=== PATIENT | female | born 1975 | race Caucasian/White ===

== ENCOUNTER 2017-12-12 03:46 | Emergency (ER) | payer MEDICAID ==
[~2017-12-12] VITALS: Ht 154.9 cm; Wt 88.9 kg
[2017-12-12 03:52] VITALS: Ht 154.9 cm; Wt 88.9 kg
[2017-12-12 04:49] LABS: BASOPHIL % 0.5 % (0-2); PLATELET COUNT 235 x10^3mcL (130-400)
[2017-12-12 04:54] LABS: CALCIUM 8.5 mg/dL (8.5-10.1); CARBON DIOXIDE 22.9 mmol/L (21-32); CHLORIDE SERUM 105 mmol/L (98-107); CREATININE SERUM 0.7 mg/dL (0.6-1.0); GFR1 > 60 mL/min; GLUCOSE SERUM 107 mg/dL (74-106); POTASSIUM SERUM 3.7 mmol/L (3.5-5.1); SODIUM SERUM 137 mmol/L (136-145)
[2017-12-12 04:58] LABS: ALKALINE PHOSPHATASE 78 U/L (46-116); ALT/SGPT 50 U/L (14-59); AST/SGOT 22 U/L (15-37); BILIRUBIN TOTAL 0.19 mg/dL (0.20-1.00); HDL CHOLESTEROL 55 mg/dL (40-60); LIPASE 125 IU/L (73-393); TOTAL PROTEIN, SERUM 7.1 g/dL (6.4-8.2); TRIGLYCERIDES 193 mg/dL (<150)
[2017-12-12 04:59] LABS: ALBUMIN 3.3 g/dL (3.4-5.0); CHOLESTEROL 252 mg/dL (<200); CHOLESTEROL/HDL RATIO 4.6
[2017-12-12 05:02] LABS: microscopic required? NO
[2017-12-12 05:03] LABS: RED CELL DISTRIBUTION WIDTH 15.2 % (11.5-14.5); T3 TOTAL 1.2 ng/mL
[2017-12-12 05:11] LABS: UA SPECIFIC GRAVITY <=1.005 (1.005-1.035); urine erythrocyte NEGATIVE (NEGATIVE)
[2017-12-12 05:12] LABS: FREE T4 0.73 ng/dL (0.76-1.46); FREE THYROXINE INDEX 2.2 ug/dL (1.4-4.5); T4(THYROXINE) 6.8 ug/dL (4.7-13.3)
[2017-12-12 05:39] VITALS: BP 134/86
== END 2017-12-12 05:40 | disposition home or self-care (01) ==
LOC: ED 03:46
PROVIDERS: Specialist
DX: F43.0 Acute stress reaction (principal); I10 Essential (primary) hypertension
CPT/HCPCS: 83880; 84439; J1885; J2060; J7030; Q0092

== ENCOUNTER 2018-06-24 07:42 | Emergency (ER) | payer MEDICAID ==
[~2018-06-24] VITALS: Ht 154.9 cm; Wt 88.6 kg
[2018-06-24 07:50] VITALS: BP 149/97; Ht 154.9 cm; Wt 88.6 kg
== END 2018-06-24 09:21 | disposition home or self-care (01) ==
LOC: ED 07:42
DX: N60.01 Solitary cyst of right breast (principal); I10 Essential (primary) hypertension
CPT/HCPCS: 76641; Q0092

== ENCOUNTER 2019-06-19 19:26 | Emergency (ER) | payer OTHER ==
[~2019-06-19] VITALS: Ht 154.9 cm; Wt 87.1 kg
[2019-06-19 19:45] VITALS: Ht 154.9 cm; Wt 87.1 kg
[2019-06-19 20:54] LABS: BASOPHIL % 0.6 % (0-2); PLATELET COUNT 236 x10^3mcL (130-400); RED CELL DISTRIBUTION WIDTH 13.2 % (11.5-14.5)
[2019-06-19 21:06] LABS: CALCIUM 9.1 mg/dL (8.5-10.1); CARBON DIOXIDE 28.4 mmol/L (21-32); CHLORIDE SERUM 101 mmol/L (98-107); CREATININE SERUM 0.6 mg/dL (0.6-1.0); GFR1 > 60 mL/min; GLUCOSE SERUM 107 mg/dL (74-106); POTASSIUM SERUM 3.7 mmol/L (3.5-5.1); SODIUM SERUM 137 mmol/L (136-145)
[2019-06-19 21:11] LABS: ALBUMIN 3.8 g/dL (3.4-5.0); ALKALINE PHOSPHATASE 77 U/L (46-116); ALT/SGPT 28 U/L (14-59); AST/SGOT 13 U/L (15-37); BILIRUBIN TOTAL 0.3 mg/dL (0.20-1.00); LIPASE 99 IU/L (73-393); TOTAL PROTEIN, SERUM 7.8 g/dL (6.4-8.2)
[2019-06-19 21:36] VITALS: BP 150/86
== END 2019-06-19 21:38 | disposition home or self-care (01) ==
LOC: ED 19:26
PROVIDERS: Emergency Medicine
DX: K29.70 Gastritis, unspecified, without bleeding (principal); I10 Essential (primary) hypertension; Z88.0 Allergy status to penicillin; Z90.49 Acquired absence of other specified parts of digestive tract
CPT/HCPCS: 36415

== ENCOUNTER 2019-11-10 10:56 | Emergency (ER) | payer OTHER ==
[~2019-11-10] VITALS: Ht 154.9 cm; Wt 88.9 kg
[2019-11-10 10:58] VITALS: BP 141/93; Ht 154.9 cm; Wt 88.9 kg
== END 2019-11-10 12:56 | disposition home or self-care (01) ==
LOC: ED 10:56
DX: M79.651 Pain in right thigh (principal); I10 Essential (primary) hypertension; Z88.0 Allergy status to penicillin
CPT/HCPCS: J1885; Q0092

== ENCOUNTER 2019-11-13 09:11 | Inpatient (IN) | payer OTHER, SELFPAY ==
[~2019-11-13] VITALS: Ht 154.9 cm; Wt 89.4 kg
[2019-11-13 12:18] LABS: UA SPECIFIC GRAVITY 1.025 (1.005-1.035); microscopic required? YES; urine erythrocyte 1+ (NEGATIVE)
[2019-11-13 12:34] LABS: BASOPHIL % 0.3 % (0-2); PLATELET COUNT 232 x10^3mcL (130-400); RED CELL DISTRIBUTION WIDTH 13.7 % (11.5-14.5)
[2019-11-13 12:35] LABS: CALCIUM 8.1 mg/dL (8.5-10.1); CARBON DIOXIDE 30.5 mmol/L (21-32); CHLORIDE SERUM 99 mmol/L (98-107); CREATININE SERUM 0.8 mg/dL (0.6-1.0); GFR1 > 60 mL/min; GLUCOSE SERUM 112 mg/dL (74-106); POTASSIUM SERUM 4.1 mmol/L (3.5-5.1); SODIUM SERUM 134 mmol/L (136-145)
[2019-11-13 12:40] LABS: ALKALINE PHOSPHATASE 81 U/L (46-116); ALT/SGPT 115 U/L (14-59); AST/SGOT 183 U/L (15-37); BILIRUBIN TOTAL 0.3 mg/dL (0.20-1.00); C REACTIVE PROTEIN 6.6 mg/dL (<=0.9); LACTIC DEHYDROGENASE (LDH) 541 U/L (100-190)
[2019-11-13 12:42] LABS: ALBUMIN 2.8 g/dL (3.4-5.0); TOTAL PROTEIN, SERUM 6.1 g/dL (6.4-8.2)
[2019-11-13] MEDS ORDERED: ADVIL200 M1 PO (15:35)
[2019-11-13 15:56] LABS: LIPASE 76 IU/L (73-393)
[2019-11-13 15:57] LABS: AMYLASE 20 U/L (25-115)
[2019-11-13 16:22] VITALS: Ht 154.9 cm; Wt 89.4 kg
[2019-11-13 16:35] LABS: CHOLESTEROL/HDL RATIO 5.1
[2019-11-13 16:42] VITALS: BP 138/70
[2019-11-13 16:46] LABS: T3 TOTAL 1.18 ng/mL
[2019-11-13 17:33] LABS: FREE T4 2.07 ng/dL (0.76-1.46); FREE THYROXINE INDEX 2.7 ug/dL (1.4-4.5); T4(THYROXINE) 8.1 ug/dL (4.7-13.3)
[2019-11-13 20:30] VITALS: BP 107/65
[2019-11-14 05:00] VITALS: BP 120/57
[2019-11-14 07:07] LABS: BASOPHIL % 0.4 % (0-2); C REACTIVE PROTEIN 10.4 mg/dL (<=0.9); CALCIUM 7.7 mg/dL (8.5-10.1); CARBON DIOXIDE 27.3 mmol/L (21-32); CHLORIDE SERUM 98 mmol/L (98-107); CREATININE SERUM 0.6 mg/dL (0.6-1.0); GFR1 > 60 mL/min; GLUCOSE SERUM 115 mg/dL (74-106); MAGNESIUM 1.4 mg/dL (1.8-2.4); PHOSPHOROUS 2.3 mg/dL (2.5-4.9); PLATELET COUNT 263 x10^3mcL (130-400); POTASSIUM SERUM 4.2 mmol/L (3.5-5.1); RED CELL DISTRIBUTION WIDTH 13.8 % (11.5-14.5); SODIUM SERUM 131 mmol/L (136-145)
[2019-11-14 08:56] VITALS: BP 144/78
[2019-11-14 13:26] VITALS: BP 144/79
[2019-11-14 17:40] VITALS: BP 144/72
[2019-11-14 20:00] VITALS: BP 138/76
[2019-11-15 05:56] VITALS: BP 136/56
[2019-11-15 07:27] LABS: ALKALINE PHOSPHATASE 52 U/L (46-116); ALT/SGPT 110 U/L (14-59); AST/SGOT 179 U/L (15-37); BILIRUBIN TOTAL 0.2 mg/dL (0.20-1.00); C REACTIVE PROTEIN 9.3 mg/dL (<=0.9); CALCIUM 7.4 mg/dL (8.5-10.1); CHLORIDE SERUM 96 mmol/L (98-107); CREATININE SERUM 0.7 mg/dL (0.6-1.0); GFR1 > 60 mL/min; GLUCOSE SERUM 108 mg/dL (74-106); MAGNESIUM 1.4 mg/dL (1.8-2.4); PHOSPHOROUS 3.6 mg/dL (2.5-4.9); SODIUM SERUM 129 mmol/L (136-145)
[2019-11-15 07:30] LABS: BASOPHIL % 0.2 % (0-2); PLATELET COUNT 259 x10^3mcL (130-400); RED CELL DISTRIBUTION WIDTH 13.9 % (11.5-14.5)
[2019-11-15 07:31] LABS: ALBUMIN 2.1 g/dL (3.4-5.0); TOTAL PROTEIN, SERUM 5.2 g/dL (6.4-8.2)
[2019-11-15 12:36] VITALS: BP 114/70
[2019-11-15 16:49] VITALS: BP 134/74
[2019-11-15 21:00] VITALS: BP 133/79
[2019-11-16 06:18] VITALS: BP 131/71
[2019-11-16 07:01] LABS: BASOPHIL % 0.2 % (0-2); PLATELET COUNT 279 x10^3mcL (130-400); RED CELL DISTRIBUTION WIDTH 13.9 % (11.5-14.5)
[2019-11-16 07:03] LABS: ALKALINE PHOSPHATASE 50 U/L (46-116); ALT/SGPT 123 U/L (14-59); AST/SGOT 163 U/L (15-37); BILIRUBIN TOTAL 0.2 mg/dL (0.20-1.00); C REACTIVE PROTEIN 8.5 mg/dL (<=0.9); CALCIUM 8.1 mg/dL (8.5-10.1); CHLORIDE SERUM 100 mmol/L (98-107); CREATININE SERUM 0.6 mg/dL (0.6-1.0); GFR1 > 60 mL/min; GLUCOSE SERUM 117 mg/dL (74-106); MAGNESIUM 1.9 mg/dL (1.8-2.4); POTASSIUM SERUM 3.8 mmol/L (3.5-5.1); SODIUM SERUM 135 mmol/L (136-145)
[2019-11-16 07:04] LABS: ALBUMIN 2.2 g/dL (3.4-5.0); TOTAL PROTEIN, SERUM 5.6 g/dL (6.4-8.2)
[2019-11-16 08:43] VITALS: BP 137/85
[2019-11-16 12:30] VITALS: BP 133/67
[2019-11-16 17:30] VITALS: BP 142/73
[2019-11-17 00:01] VITALS: BP 122/56
[2019-11-17 06:36] VITALS: BP 116/54
[2019-11-17 07:30] VITALS: BP 139/107
[2019-11-17 08:39] LABS: BASOPHIL % 0.4 % (0-2); PLATELET COUNT 333 x10^3mcL (130-400); RED CELL DISTRIBUTION WIDTH 13.7 % (11.5-14.5)
[2019-11-17 09:41] LABS: ALKALINE PHOSPHATASE 52 U/L (46-116); ALT/SGPT 175 U/L (14-59); AST/SGOT 204 U/L (15-37); BILIRUBIN TOTAL 0.2 mg/dL (0.20-1.00); C REACTIVE PROTEIN 4.3 mg/dL (<=0.9); CALCIUM 8.1 mg/dL (8.5-10.1); CARBON DIOXIDE 32.1 mmol/L (21-32); CHLORIDE SERUM 99 mmol/L (98-107); CREATININE SERUM 0.6 mg/dL (0.6-1.0); GFR1 > 60 mL/min; GLUCOSE SERUM 81 mg/dL (74-106); MAGNESIUM 1.8 mg/dL (1.8-2.4); PHOSPHOROUS 3.9 mg/dL (2.5-4.9); POTASSIUM SERUM 3.6 mmol/L (3.5-5.1); SODIUM SERUM 136 mmol/L (136-145)
[2019-11-17 09:42] LABS: ALBUMIN 2.4 g/dL (3.4-5.0); TOTAL PROTEIN, SERUM 5.6 g/dL (6.4-8.2)
[2019-11-17 12:30] VITALS: BP 123/81
[2019-11-17 17:30] VITALS: BP 142/71
[2019-11-17 20:45] VITALS: BP 147/88
[2019-11-18 05:14] VITALS: BP 135/71
[2019-11-18 07:31] LABS: ALKALINE PHOSPHATASE 61 U/L (46-116); ALT/SGPT 234 U/L (14-59); AST/SGOT 259 U/L (15-37); BILIRUBIN TOTAL 0.2 mg/dL (0.20-1.00); CALCIUM 7.8 mg/dL (8.5-10.1); CARBON DIOXIDE 33.8 mmol/L (21-32); CHLORIDE SERUM 99 mmol/L (98-107); CREATININE SERUM 0.5 mg/dL (0.6-1.0); GFR1 > 60 mL/min; GLUCOSE SERUM 80 mg/dL (74-106); MAGNESIUM 1.8 mg/dL (1.8-2.4); PHOSPHOROUS 3.7 mg/dL (2.5-4.9); POTASSIUM SERUM 3.6 mmol/L (3.5-5.1); SODIUM SERUM 135 mmol/L (136-145)
[2019-11-18 07:33] LABS: ALBUMIN 2.3 g/dL (3.4-5.0); TOTAL PROTEIN, SERUM 5.5 g/dL (6.4-8.2)
[2019-11-18 07:51] LABS: BASOPHIL % 0.4 % (0-2); PLATELET COUNT 357 x10^3mcL (130-400); RED CELL DISTRIBUTION WIDTH 13.7 % (11.5-14.5)
[2019-11-18 09:16] VITALS: BP 125/65
[2019-11-18] MEDS ORDERED: LEVAQUIN500 M1 PO (13:02)
[2019-11-18 13:37] VITALS: BP 120/64
== END 2019-11-18 14:39 | disposition home or self-care (01) | DRG 139 ==
LOC: ED 09:11 → DU 14:03
PROVIDERS: Emergency Medicine; ADMIT Family Medicine; ATTEND Family Medicine
DX: J18.9 Pneumonia, unspecified organism (principal); M62.82 Rhabdomyolysis; E87.1 Hypo-osmolality and hyponatremia; Z88.0 Allergy status to penicillin; B96.20 Unspecified Escherichia coli [E. coli] as the cause of diseases classified elsewhere; Z20.828 Contact with and (suspected) exposure to other viral communicable diseases
CPT/HCPCS: 36600; 82962; 83880; 84439; 87804; G0378; J0456; J0692; J0696; J1100; J1644; J1885; J1956; J2185; J3370; J7030; J7050; Q0092; U0003-CS